=== PATIENT | female | born 1960 ===

== ENCOUNTER → 2023-01-10 | Outpatient (CLI) | payer MEDICARE, BC | LOC: LAB SHORT 05:48 → LAB 05:48 | DX: R10.13 Epigastric pain (principal) | CPT/HCPCS: 87338 ==

== ENCOUNTER → 2023-09-01 | Outpatient (CLI) | payer MEDICARE, BC ==
[2023-09-01 12:29] LABS: Thyroid Stimulating Hormone 1.12 uIU/mL (0.360-4.800)
== END | disposition home or self-care (01) ==
LOC: LAB SHORT 08:00 → LAB 08:00
PROVIDERS: Internal Medicine
DX: E53.8 Deficiency of other specified B group vitamins (principal); E55.9 Vitamin D deficiency, unspecified; E61.1 Iron deficiency; R53.82 Chronic fatigue, unspecified
CPT/HCPCS: 82306; 82607; 82746; 84443